=== PATIENT | male | born 1995 | race Caucasian/White ===

== ENCOUNTER → 2025-04-22 | Outpatient (CLI) | payer OTHER ==
[~2025-04-22] MED LIST: ALBU90OI INH; AZIT250 PO
== END ==
LOC: LAB 16:30 → LAB SHORT 16:30
DX: E53.8 Deficiency of other specified B group vitamins (principal)
CPT/HCPCS: 82607

== ENCOUNTER 2025-06-11 16:20 | Emergency (ER) | payer OTHER ==
[~2025-06-11] VITALS: Ht 180.3 cm; Wt 199.6 kg
[2025-06-11] MEDS ORDERED: ATOR20 PO (16:36)
[2025-06-11 17:02] LABS: BASOPHILS ABSOLUTE AUTO 0.08 K/mm3 (0.00-0.23); BASOPHILS PERCENT AUTO 2 % (0-2); EOSINOPHILS ABSOLUTE AUTO 0.18 K/mm3 (0.00-0.68); EOSINOPHILS PERCENT AUTO 4 % (0-6); Hematocrit 18.7 % (37.0-53.0); IMMATURE GRAN ABSOLUTE AUTO 0.02 K/mm3 (0.00-0.10); IMMATURE GRAN PERCENT AUTO 0 % (0-1); LYMPHOCYTES ABSOLUTE AUTO 1.24 K/mm3 (0.84-5.20); LYMPHOCYTES PERCENT AUTO 24 % (21-46); MONOCYTES ABSOLUTE AUTO 0.96 K/mm3 (0.16-1.47); MONOCYTES PERCENT AUTO 19 % (4-13); Mean Corpuscular HGB Conc 27.3 g/dL (31.5-36.5); Mean Corpuscular Volume 81 fL (80-100); NEUTROPHILS ABSOLUTE AUTO 2.68 K/mm3 (1.96-9.15); NEUTROPHILS PERCENT AUTO 52 % (41-73); NRBC ABSOLUTE 0.00 K/mm3 (0.00-0.02); NRBC Auto 0.0 /100 WBC (0.0-0.2); Platelet Count 225 K/mm3 (150-400); RDW Coefficient Variation 18.5 % (11.7-14.2); RDW Standard Deviation 54.3 fL (35.1-46.3)
[2025-06-11 17:10] LABS: Hemoglobin 5.1 g/dL (13.5-17.5)
[2025-06-11 17:23] LABS: Alanine Aminotransfer (ALT/SGP 37.0 U/L (12-78); Albumin, Blood 3.0 g/dL (3.4-5.0); Albumin/Globulin Ratio 0.8 (0.8-1.8); Anion Gap 12.0 mmol/L (3-11); Aspartate Aminotrans (AST/SGOT 95.0 U/L (12-37); Bilirubin, Total 0.8 mg/dL (0.1-1.0); Blood Urea Nitrogen 8.0 mg/dL (8-24); CO2, Blood 23.0 mmol/L (21-32); Calcium, Blood 8.5 mg/dL (8.5-10.1); Chloride, Blood 108.0 mmol/L (98-108); Creatinine, Blood 0.53 mg/dL (0.60-1.20); Globulin, Blood 4.0 g/dL (2.2-4.0); Glucose, Blood 95.0 mg/dL (70-99); Potassium, Blood 3.4 mmol/L (3.5-5.5); Sodium, Blood 140.0 mmol/L (136-145); Total Protein, Blood 7.0 g/dL (6.4-8.2)
[2025-06-11 19:22] LABS: BASOPHILS ABSOLUTE AUTO 0.09 K/mm3 (0.00-0.23); BASOPHILS PERCENT AUTO 2 % (0-2); EOSINOPHILS ABSOLUTE AUTO 0.21 K/mm3 (0.00-0.68); EOSINOPHILS PERCENT AUTO 4 % (0-6); Hematocrit 20.0 % (37.0-53.0); IMMATURE GRAN ABSOLUTE AUTO 0.02 K/mm3 (0.00-0.10); IMMATURE GRAN PERCENT AUTO 0 % (0-1); LYMPHOCYTES ABSOLUTE AUTO 1.08 K/mm3 (0.84-5.20); LYMPHOCYTES PERCENT AUTO 22 % (21-46); MONOCYTES ABSOLUTE AUTO 0.86 K/mm3 (0.16-1.47); MONOCYTES PERCENT AUTO 17 % (4-13); Mean Corpuscular HGB Conc 27.0 g/dL (31.5-36.5); Mean Corpuscular Volume 81 fL (80-100); NEUTROPHILS ABSOLUTE AUTO 2.70 K/mm3 (1.96-9.15); NEUTROPHILS PERCENT AUTO 55 % (41-73); NRBC ABSOLUTE 0.00 K/mm3 (0.00-0.02); NRBC Auto 0.0 /100 WBC (0.0-0.2); Platelet Count 244 K/mm3 (150-400); RDW Coefficient Variation 18.6 % (11.7-14.2); RDW Standard Deviation 54.3 fL (35.1-46.3)
[2025-06-11 19:24] LABS: Hemoglobin 5.4 g/dL (13.5-17.5)
[2025-06-11 19:54] LABS: Alanine Aminotransfer (ALT/SGP 40.0 U/L (12-78); Albumin, Blood 3.1 g/dL (3.4-5.0); Albumin/Globulin Ratio 0.8 (0.8-1.8); Anion Gap 10.0 mmol/L (3-11); Aspartate Aminotrans (AST/SGOT 99.0 U/L (12-37); Bilirubin, Total 0.8 mg/dL (0.1-1.0); Blood Urea Nitrogen 8.0 mg/dL (8-24); CO2, Blood 24.0 mmol/L (21-32); Calcium, Blood 8.6 mg/dL (8.5-10.1); Chloride, Blood 108.0 mmol/L (98-108); Creatinine, Blood 0.56 mg/dL (0.60-1.20); Ethanol (Alcohol), Blood, Med 232.0 mg/dL; Globulin, Blood 4.1 g/dL (2.2-4.0); Glucose, Blood 87.0 mg/dL (70-99); Potassium, Blood 3.4 mmol/L (3.5-5.5); Sodium, Blood 139.0 mmol/L (136-145); Total Protein, Blood 7.2 g/dL (6.4-8.2)
[2025-06-11] MEDS ORDERED: NS 1,000 ML IV ONE (20:36)
[2025-06-11] MEDS ORDERED: NS 250 ML IV SCH (20:45)
[2025-06-11 21:06] LABS: Source, Urine Clean Catch
[2025-06-11 21:10] LABS: Bilirubin, Urine Neg (Neg); Color, Urine Yellow (P-Yellow); Glucose Qualitative, Urine Neg (Neg); Ketones, Urine Neg (Neg); Leukocyte Esterase, Urine Neg (Neg); Protein, Urine 3+ (Neg); Specific Gravity, Urine 1.015 (1.003-1.022); Urobilinogen, Urine 1+ (Normal)
[2025-06-11 21:17] LABS: Red Blood Cells, Urine 0-2 /hpf (0-2); White Blood Cells, Urine 0-2 /hpf (0-5)
[2025-06-11 21:22] LABS: U Amphetamine Screen Not Detected; U Barbiturate Screen Not Detected; U Benzodiazapine Screen Not Detected; U Buprenorphine Screen Not Detected; U Cannabinoids Screen DETECTED; U Cocaine Screen Not Detected; U Methadone Screen Not Detected; U Methamphetamine Screen Not Detected; U Opiates Screen Not Detected; U Oxycodone Screen Not Detected; U Phencyclidine Screen Not Detected
== END 2025-06-12 00:20 | disposition left against medical advice (07) ==
LOC: ER 16:20
PROVIDERS: Emergency Medicine; Student in an Organized Health Care Education/Training Program
DX: D64.9 Anemia, unspecified (principal); R60.0 Localized edema; R06.02 Shortness of breath; E66.01 Morbid (severe) obesity due to excess calories; I10 Essential (primary) hypertension; Z79.899 Other long term (current) drug therapy
CPT/HCPCS: 36430; 71046; 80053; 80320; 81001; 83880; 84484; 85025; 86850; 86900; 86901; 86923; 93005; 93010; 96374; 99284-25; J1938; J7030; P9016

== ENCOUNTER 2025-06-13 12:41 | Inpatient (IN) | payer OTHER ==
[~2025-06-13] VITALS: Ht 180.3 cm; Wt 203.2 kg
[~2025-06-13 12:41] MED LIST changes: +ATOR20 PO
[2025-06-13 14:24] LABS: BASOPHILS ABSOLUTE AUTO 0.11 K/mm3 (0.00-0.23); BASOPHILS PERCENT AUTO 1 % (0-2); EOSINOPHILS ABSOLUTE AUTO 0.16 K/mm3 (0.00-0.68); EOSINOPHILS PERCENT AUTO 2 % (0-6); IMMATURE GRAN ABSOLUTE AUTO 0.06 K/mm3 (0.00-0.10); IMMATURE GRAN PERCENT AUTO 1 % (0-1); LYMPHOCYTES ABSOLUTE AUTO 0.88 K/mm3 (0.84-5.20); LYMPHOCYTES PERCENT AUTO 11 % (21-46); MONOCYTES ABSOLUTE AUTO 1.33 K/mm3 (0.16-1.47); MONOCYTES PERCENT AUTO 16 % (4-13); Mean Corpuscular HGB Conc 28.7 g/dL (31.5-36.5); Mean Corpuscular Volume 81 fL (80-100); NEUTROPHILS ABSOLUTE AUTO 5.76 K/mm3 (1.96-9.15); NEUTROPHILS PERCENT AUTO 70 % (41-73); NRBC ABSOLUTE 0.03 K/mm3 (0.00-0.02); NRBC Auto 0.4 /100 WBC (0.0-0.2); Platelet Count 254 K/mm3 (150-400); RDW Coefficient Variation 19.2 % (11.7-14.2); RDW Standard Deviation 55.8 fL (35.1-46.3)
[2025-06-13 14:27] LABS: Hematocrit 17.4 % (37.0-53.0); Hemoglobin 5.0 g/dL (13.5-17.5)
[2025-06-13] MEDS ORDERED: Pantoprazole Sodium 40 MG Injection IV ONE (14:55)
[2025-06-13 15:00] LABS: Alanine Aminotransfer (ALT/SGP 34.0 U/L (12-78); Albumin, Blood 2.8 g/dL (3.4-5.0); Albumin/Globulin Ratio 0.7 (0.8-1.8); Anion Gap 14.0 mmol/L (3-11); Aspartate Aminotrans (AST/SGOT 76.0 U/L (12-37); Bilirubin, Total 0.9 mg/dL (0.1-1.0); Blood Urea Nitrogen 8.0 mg/dL (8-24); CO2, Blood 21.0 mmol/L (21-32); Calcium, Blood 8.5 mg/dL (8.5-10.1); Chloride, Blood 105.0 mmol/L (98-108); Creatinine, Blood 0.47 mg/dL (0.60-1.20); Globulin, Blood 3.8 g/dL (2.2-4.0); Glucose, Blood 104.0 mg/dL (70-99); Potassium, Blood 3.6 mmol/L (3.5-5.5); Sodium, Blood 136.0 mmol/L (136-145); Total Protein, Blood 6.6 g/dL (6.4-8.2)
[2025-06-13] MEDS ORDERED: LORazepam 2 MG/ML 1ML Injection IV ONE (15:10)
[2025-06-13 15:35] LABS: Prothrombin Time Results 12.2 Sec (9.7-11.5)
[2025-06-13 15:49] LABS: Ethanol (Alcohol), Blood, Med 99 mg/dL
[2025-06-13] MEDS ORDERED: NS 1,000 ML IV SCH (16:15)
[2025-06-13] MEDS ORDERED: FLU VACC TS2025-26(6MOS UP)/PF 45 MCG/0.5 ML SYRINGE IM SCH (18:35)
[2025-06-13] MEDS ORDERED: LORazepam 2 MG/ML 1ML Injection IV PRN ×2 (19:55)
[2025-06-13 21:15] VITALS: BP 165/93
[2025-06-13 23:13] VITALS: BP 147/111
[2025-06-14] VITALS (13 sets, daily range): BP systolic 114–168; BP diastolic 62–105
[2025-06-14 02:18] LABS: BASOPHILS ABSOLUTE AUTO 0.09 K/mm3 (0.00-0.23); BASOPHILS PERCENT AUTO 1 % (0-2); EOSINOPHILS ABSOLUTE AUTO 0.07 K/mm3 (0.00-0.68); EOSINOPHILS PERCENT AUTO 1 % (0-6); Hematocrit 18.0 % (37.0-53.0); IMMATURE GRAN ABSOLUTE AUTO 0.05 K/mm3 (0.00-0.10); IMMATURE GRAN PERCENT AUTO 1 % (0-1); LYMPHOCYTES ABSOLUTE AUTO 0.78 K/mm3 (0.84-5.20); LYMPHOCYTES PERCENT AUTO 9 % (21-46); MONOCYTES ABSOLUTE AUTO 1.39 K/mm3 (0.16-1.47); MONOCYTES PERCENT AUTO 16 % (4-13); Mean Corpuscular HGB Conc 30.0 g/dL (31.5-36.5); Mean Corpuscular Volume 81 fL (80-100); NEUTROPHILS ABSOLUTE AUTO 6.48 K/mm3 (1.96-9.15); NEUTROPHILS PERCENT AUTO 73 % (41-73); NRBC ABSOLUTE 0.06 K/mm3 (0.00-0.02); NRBC Auto 0.7 /100 WBC (0.0-0.2); Platelet Count 252 K/mm3 (150-400); RDW Coefficient Variation 18.6 % (11.7-14.2); RDW Standard Deviation 54.0 fL (35.1-46.3)
[2025-06-14 02:26] LABS: Hemoglobin 5.4 g/dL (13.5-17.5)
[2025-06-14 02:38] LABS: Alanine Aminotransfer (ALT/SGP 30.0 U/L (12-78); Albumin, Blood 2.7 g/dL (3.4-5.0); Albumin/Globulin Ratio 0.7 (0.8-1.8); Anion Gap 10.0 mmol/L (3-11); Aspartate Aminotrans (AST/SGOT 66.0 U/L (12-37); Bilirubin, Total 2.1 mg/dL (0.1-1.0); Blood Urea Nitrogen 6.0 mg/dL (8-24); CO2, Blood 27.0 mmol/L (21-32); Calcium, Blood 8.7 mg/dL (8.5-10.1); Chloride, Blood 105.0 mmol/L (98-108); Creatinine, Blood 0.54 mg/dL (0.60-1.20); Globulin, Blood 3.7 g/dL (2.2-4.0); Glucose, Blood 103.0 mg/dL (70-99); Potassium, Blood 3.6 mmol/L (3.5-5.5); Sodium, Blood 138.0 mmol/L (136-145); Total Protein, Blood 6.4 g/dL (6.4-8.2)
[2025-06-14] MEDS ORDERED: NS 500 ML IV SCH (04:25)
--- NOTE | 2025-06-14 07:18 | NUR ---
SHIFT SUMMARY: PT WAS RECEVIED FROM ED VIA STRETCHER. WITH ONGOING BLOOD TRANSFUSION. PT WAS AWAKE AND COHERENT, WAS ABLE TO WALK FROM STRETCHER TO BED. GAIT WAS NOT THAT STABLE. EDUCATE PT TO USE THE CALL LIGHT WHEN GETTING UP AND ASK FOR ASSISTANCE. PT WAS IMPULSIVE MOST OF THE ENTIRE SHIFT. HE WOULD GET UP BY HIMSELF TO TRY AND USE THE BATHROOM. ENCOURAGED PT TO USE THE URINAL OR BEDSIDE COMMODE INSTEAD. NOTED HIS PANTS WAS WET FROM URINE. ENCOURAGED PT TO CHANGE INTO GOWN BUT PT REFUSED. DISCUSSED TO PT IMPORTANCE OF HYGIENE BUT PT WAS FIRM NOT TO CHANGE HIS PANTS. PT'S MOM HELPED IN ENCOURAGING THE PT TO CHANGE AND EVENTUALLY AGREED TO CHANGE WITH HOSPITAL GOWN AND HOSPITAL PANTS. HGB CAME BACK 5.4. INFORMED DOCTOR ON DUTY AND PT WAS GIVEN ANOTHER BAG OF RBC. MONITORED PT PER PROTOCOL. PT ASKED THIS RN AND ANOTHER RN NOT TO MENTION TO HIS MOM HIS RECENT DRINKING HABITS. WILL ENDORSE TO NEXT NURSE ON DUTY.
[2025-06-14 12:12] LABS: Hematocrit 23.0 % (37.0-53.0); Hemoglobin 6.9 g/dL (13.5-17.5)
--- NOTE | 2025-06-14 17:23 | NUR ---
SHIFT SUMMARY PT GETTING BLOOD AT START OF SHIFT WITH AN ADDITIONAL UNIT TO FOLLOW, REPEAT H&H DONE BY LAB WITH IMPROVEMENT IN H&H BUT IT WAS STILL LOW SO ONE ADDITIONAL UNIT OF BLOOD WAS ORDERED FOR A TOTAL OF 5 UNITS PRBC THIS VISIT. PT HAS BEEN TACHYCARDIC T/O THE SHIFT BUT MOSTLY IN THE LOW 100'S TO 110'S. ABLE TO GET UP MORE INDEPENDENTLY THOUGH STAFF HAS BEEN WITH HIM SBA SINCE HE HAS BEEN CONNECTED TO THE IV POLE FOR BLOOD. AN ADDITIONAL H&H IS TO BE DRAW WHEN LAB IS AVAILABLE. NO OTHER EVENTS THIS SHIFT, CALL LIGHT IN REACH.
[2025-06-14 17:54] LABS: BASOPHILS ABSOLUTE AUTO 0.14 K/mm3 (0.00-0.23); BASOPHILS PERCENT AUTO 2 % (0-2); EOSINOPHILS ABSOLUTE AUTO 0.15 K/mm3 (0.00-0.68); EOSINOPHILS PERCENT AUTO 2 % (0-6); Hematocrit 25.0 % (37.0-53.0); Hemoglobin 7.5 g/dL (13.5-17.5); IMMATURE GRAN ABSOLUTE AUTO 0.08 K/mm3 (0.00-0.10); IMMATURE GRAN PERCENT AUTO 1 % (0-1); LYMPHOCYTES ABSOLUTE AUTO 1.31 K/mm3 (0.84-5.20); LYMPHOCYTES PERCENT AUTO 14 % (21-46); MONOCYTES ABSOLUTE AUTO 1.55 K/mm3 (0.16-1.47); MONOCYTES PERCENT AUTO 16 % (4-13); Mean Corpuscular HGB Conc 30.0 g/dL (31.5-36.5); Mean Corpuscular Volume 84 fL (80-100); NEUTROPHILS ABSOLUTE AUTO 6.36 K/mm3 (1.96-9.15); NEUTROPHILS PERCENT AUTO 66 % (41-73); NRBC ABSOLUTE 0.09 K/mm3 (0.00-0.02); NRBC Auto 0.9 /100 WBC (0.0-0.2); Platelet Count 274 K/mm3 (150-400); RDW Coefficient Variation 18.3 % (11.7-14.2); RDW Standard Deviation 54.2 fL (35.1-46.3)
--- NOTE | 2025-06-14 20:43 | NUR ---
PT WAS TEARFUL DURING BEDSIDE SHIFT REPORT STATING HE WANTS TO LEAVE THE HOSPITAL. MOM IS AT BEDSIDE. PT AND MOM EDUCATED ON NEED TO STAY, SO PT'S LAB RESULTS ARE MONITORED. AFTER BEING EDUCATED, PT AND MOM INSIST ON LEAVING. NOTIFIED AND CAME TO BEDSIDE TO TALK WITH PT AND PT'S MOM. PT MADE DECISION TO LEAVE AGAINST MEDICAL ADVICE. PT REMOVED BOTH IVs. SIGNED AMA PAPERWORK. PT AMBULATED OFF UNIT UNDER HIS OWN POWER WITH MOM WALKING BESIDE HIM.
== END 2025-06-14 20:48 | disposition left against medical advice (07) | DRG 812 ==
LOC: ER 12:41 → PCU 12:42
PROVIDERS: Emergency Medicine; Student in an Organized Health Care Education/Training Program; ADMIT Family Medicine
PROC: 30233N1 Transfusion of Nonautologous Red Blood Cells into Peripheral Vein, Percutaneous Approach (ICD-10-PCS; principal; 2025-06-13)
DX: D62 Acute posthemorrhagic anemia (principal); F10.239 Alcohol dependence with withdrawal, unspecified; K92.1 Melena; Z68.44 Body mass index [BMI] 60.0-69.9, adult; E66.813 Obesity, class 3; I10 Essential (primary) hypertension; Y90.4 Blood alcohol level of 80-99 mg/100 ml; F10.229 Alcohol dependence with intoxication, unspecified; Z53.29 Procedure and treatment not carried out because of patient's decision for other reasons
CPT/HCPCS: 36415; 36430; 71045; 74177; 80053; 80320; 82947; 83690; 83880; 84484; 85014; 85018; 85025; 85610; 85730; 86850; 86900; 86901; 86923; 96374-59; 96375; 96376; 99285-25; A9270; G0378; J2060; J2470; J3411; J7030; P9016; Q9967